=== PATIENT | female | born 1980 | race Caucasian/White ===

== ENCOUNTER 2020-03-04 23:07 | Emergency (ER) | payer OTHER, SELFPAY ==
[2020-03-04 23:12] VITALS: BP 143/83; PULSE 83; RESP 14; TEMP 36.4
[2020-03-04] MEDS: MECLIZINE HCL 25 MG TABLET PO (23:51)
--- NOTE | 2020-03-04 23:57 | ED.EAR ---
HPI - Ear Problem General Chief complaint: Ear Stated complaint: cant hear well Time Seen by Provider: 03/04/20 23:22 History of Present Illness HPI Narrative: Patient is a 39-year-old female who presents ER with ear discomfort. Patient reports yesterday she noticed that her right ear was feeling clogged and had muffled hearing. Today she started developing similar symptoms in her left ear. Reports mild sinus congestion. She has been using allergy medication without relief. No profound dizziness but did have a brief episode of being off balance. No nausea/vomiting/fever/chills. Has tried to clean her ears but this did not induce her hearing loss. Related Data Allergies Allergy/AdvReac Type Severity Reaction Status Date / Time No Known Allergies Allergy Mild Verified 03/04/20 23:21 Review of Systems Constitutional: Constitutional: Denies chills, Denies fever(s) and Denies weakness ENT: Reports dizziness and Reports nasal congestion Comments: Muffled hearing PMFSH Past Medical History Medical History (Updated 03/05/20 @ 00:03 by Philippe Allen MD) Healthy female adult Surgical History Surgical History (Updated 03/04/20 @ 23:59 by Philippe Allen MD) No history of previous surgery Exam Narrative: Exam Narrative: GENERAL: Well-appearing, well-nourished, and in no acute distress. HEAD: Normocephalic, atraumatic. ENT: Normal tympanic membranes bilaterally without evidence of perforation or infection. Ear canals free of cerumen. Normal external ear without tender mastoid. No frontal or maxillary sinus tenderness. NEURO: Alert and oriented x3. PSYCH: Normal mood and affect. Course Course Emergency Course: Suspect has build up of pressure due to URI/sinus pressure. Vital Signs Vital signs: Vital Signs Temperature 97.5 F L 03/04/20 23:12 Pulse Rate 83 03/04/20 23:12 Respiratory Rate 14 03/04/20 23:12 Blood Pressure 143/83 H 03/04/20 23:12 Temperature 97.5 F L 03/04/20 23:12 Pulse Rate 83 03/04/20 23:12 Respiratory Rate 14 03/04/20 23:12 Blood Pressure 143/83 H 03/04/20 23:12 Medical Decision Making Vital Signs Vital Signs: Vital Signs Temperature 97.5 F L 03/04/20 23:12 Pulse Rate 83 07/23/20 23:12 Respiratory Rate 14 03/04/20 23:12 Blood Pressure 143/83 H 03/04/20 23:12 Temperature 97.5 F L 03/04/20 23:12 Pulse Rate 83 03/04/20 23:12 Respiratory Rate 14 03/04/20 23:12 Blood Pressure 143/83 H 03/04/20 23:12 Discharge Plan Discharge Clinical Impression: Pressure sensation in both ears Patient Disposition: Home, Self-Care Condition: Stable Additional Instructions: Is likely that your middle ear is not draining properly through your station tube due to sinus pressure. Take meclizine as an antihistamine to help with this. Continue your allergy medication. Return to the ER if you have fever over 100.4 ?F, you have significant ear pain, or you have other concerns. You may require follow-up with an ENT if your symptoms do not improve. Prescriptions: New meclizine 25 mg tablet 25 mg PO TID PRN (Reason: dizziness) Qty: 10 RF: 0 Follow-up/Referrals: [facility] [Primary Care Provider] - Bao Kahn MD [Physician] - 1 Week
[2020-03-05 00:23] VITALS: BP 128/69; PULSE 68; RESP 16; O2SAT 99
== END 2020-03-05 00:39 | disposition home or self-care (01) ==
PROVIDERS: Emergency Provider Emergency Medicine
DX: H93.8X3 Other specified disorders of ear, bilateral (principal)
CPT/HCPCS: 99283; A9270

== ENCOUNTER 2021-09-21 20:21 | Emergency (ER) | payer OTHER, SELFPAY ==
--- NOTE | ~2021-09-21 | XR_ITS ---
EXAMINATION: XR chest 1V portable DATE: 09/21/2021 21:55 INDICATION: Cough. TECHNIQUE: A single frontal view of the chest was obtained. COMPARISON: None. FINDINGS: The chest demonstrates clear lungs without pneumonia, pleural effusion, or pneumothorax. Th e heart size is normal. IMPRESSION: 1. No acute cardiopulmonary disease. Reviewed, dictated and finalized at location A. [facility]
[2021-09-21 20:41] VITALS: BP 150/102; PULSE 86; RESP 18; TEMP 36.2; O2SAT 99
[2021-09-21 21:30] VITALS: PULSE 78
[2021-09-21 21:31] VITALS: BP 123/75; PULSE 82; RESP 18; O2SAT 99
[2021-09-21 22:06] LABS: Basophils Absolute Auto 0.1 K/mm3 (0.0-0.1); Basophils Percent Auto 0.7 % (0.2-1.2); Eosinophils Absolute Auto 0.5 K/mm3 (0-0.3); Eosinophils Percent Auto 5.4 % (0-4.4); Hematocrit 34.5 % (37.0-47.0); Hemoglobin 11.1 g/dL (12.0-15.0); Immature Granulocyte Absolute 0.03 K/mm3 (0.00-0.031); Immature Granulocyte Percent A 0.3 % (0-0.5); Lymphocytes Absolute Auto 2.45 K/mm3 (0.9-3.2); Lymphocytes Percent Auto 25.3 % (18.3-44.2); Mean Corpuscular HGB Conc 32.2 g/dl (32-36); Mean Corpuscular Hemoglobin 25.4 pg (26-34); Mean Corpuscular Volume 78.9 fl (80-100); Monocytes Absolute Auto 0.7 K/mm3 (0.1-0.6); Monocytes Percent Auto 6.8 % (2.6-8.5); Neutrophils Percent Auto 61.5 % (45.5-73.1); Platelet Count Result 354 k/mm3 (150-375); Red Blood Count 4.37 M/mm3 (4.2-5.4); Red Cell Distribution Width 14.9 % (11.5-14.5); White Blood Count 9.7 K/mm3 (4.5-10.0)
--- NOTE | 2021-09-21 22:09 | ED.SOB ---
HPI - SOB/Dyspnea General Chief Complaint: Shortness of Breath/Dyspnea Stated Complaint: SOB, cough Time Seen by Provider: 09/21/21 21:33 Source: patient History of Present Illness HPI Narrative: Patient presents with shortness of breath. 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 When she is not coughing she felt well. Prior to today she felt well she denies any recent fevers, nausea, vomiting. She has no known exposures to infectious processes such as Covid but she does need a lot of people due to her job. She is vaccinated against Covid. Related Data Allergies Allergy/AdvReac Type Severity Reaction Status Date / Time avocado Allergy Unknown Verified 09/21/21 21:35 latex Allergy Unknown Verified 09/21/21 21:35 nut - unspecified Allergy Unknown Verified 09/21/21 21:35 pistachio nut Allergy Unknown Verified 09/21/21 21:35 Review of Systems Review of Systems: CONSTITUTIONAL: Denies fever, chills, or sweats. EYES: Denies visual changes, redness, or discharge. ENT: Denies rhinorrhea, congestion, sore throat, or otalgia. CARDIOVASCULAR: Denies chest pain, palpitations, or edema. RESPIRATORY: Denies cough or dyspnea. GASTROINTESTINAL: Denies abdominal pain, nausea, vomiting, or diarrhea. GENITOURINARY: Denies dysuria or hematuria. SKIN: Denies rash or itching. MUSCULOSKELETAL: Denies back pain, joint pain, or myalgia. NEUROLOGIC: Denies headache, numbness, dizziness, or weakness. PSYCHIATRIC: Denies anxiety or depression. All systems reviewed & are unremarkable except as noted in HPI and below PMFSH Past Medical History Medical History Healthy female adult Surgical History Surgical History No history of previous surgery Exam Narrative: GENERAL: Well-appearing, well-nourished, and in no acute distress. HEAD: Normocephalic, atraumatic. EYES: PERRLA and EOMI. ENT: Nares clear, no rhinorrhea or epistaxis. Mucous membranes moist. NECK: Supple. No masses. No JVD CHEST: Clear to auscultation. No respiratory distress. No wheezes rales or rhonchi HEART: Regular rate and rhythm. No murmur heard. Normal peripheral pulses. ABDOMEN: Soft, nontender, nondistended, normal active bowel sounds. EXTREMITIES: Normal range of motion. No edema. SKIN: Warm, dry, no rash. NEURO: No focal deficits. Alert and oriented x3. PSYCH: Normal mood and affect. Course Reevaluation(s) Reevaluation #1: Patient resting comfortably results and plan reviewed with patient. Patient is comfortable with outpatient plan. Date: 09/21/21 Time: 23:10 Vital Signs Vital signs: Vital Signs Temperature 36.2 C L 09/21/21 20:41 Pulse Rate 86 09/21/21 20:41 Respiratory Rate 18 09/21/21 20:41 Blood Pressure 150/102 H 09/21/21 20:41 Pulse Oximetry 99 09/21/21 20:41 Temperature 36.6 C 09/21/21 23:14 Pulse Rate 80 09/21/21 23:14 Respiratory Rate 18 09/21/21 23:14 Blood Pressure 119/75 09/21/21 23:14 Pulse Oximetry 98 09/21/21 23:14 MDM - SOB/Dyspnea MDM Narrative Medical decision making narrative: H&P as above, vss, pt looks clinically well, exam reassuring, labs clinically unremarkable, img clinically unremarkable, additional labs/img considered, symptomatic relief available as needed, on reevaluation pt continues to looks clinically well. Suspect early bronchitis, dns pneumonia, severe sepsis, hypoxia, severe dehydration. plan to tx/monitor as op w/ pcm f/u findings/plan discussed with pt, pt agree/comfortable with plan, return precautions given Lab Data Result diagrams: 09/21/21 21:57 09/21/21 21:57 Labs: Lab Results 09/21/21 09/21/21 09/21/21 Range/Units 21:57 21:57 21:57 WBC 9.7 (4.5-10.0) K/mm3 RBC 4.37 (4.2-5.4) M/mm3 Hgb 11.1 L (12.0-15.0) g/dL Hct 34.5 L (
[2021-09-21 22:25] LABS: Alanine Aminotransferase 19 U/L (4-35); Albumin Level 4.2 g/dL (3.5-5.1); Alkaline Phosphatase 78 U/L (38-126); Anion Gap 5 mmol/L (8-16); Aspartate Amino Transferase 23 U/L (14-36); Bilirubin,Total 0.2 mg/dL (0.2-1.3); Blood Urea Nitrogen 11 mg/dL (7-17); Calcium 9.7 mg/dL (8.4-10.2); Carbon Dioxide 26 mmol/L (22-30); Chloride 107 mmol/L (98-107); Estimated CRCL calculation 110 ml/min; Estimated Glomerular Filt Rate > 60; Glucose 104 mg/dL (65-110); Potassium 3.6 mmol/L (3.4-5.0); Sodium 138 mmol/L (137-145)
[2021-09-21 23:14] VITALS: BP 119/75; PULSE 80; RESP 18; TEMP 36.6; O2SAT 98
[2021-09-22 00:45] LABS: SARS-CoV-2 RNA PCR Positive
== END 2021-09-21 23:20 | disposition home or self-care (01) ==
PROVIDERS: Emergency Provider Emergency Medicine; PCP Emergency Medicine
DX: U07.1 COVID-19 (principal); R05.9 Cough, unspecified
CPT/HCPCS: 36415; 71045; 80053; 85025; 87804; 99283; C9803; U0003; U0005